=== PATIENT | female | born 1935 | race Caucasian/White ===

== ENCOUNTER 2018-02-13 12:32 | Day surgery (SDC) | payer MEDICARE ==
[~2018-02-13] VITALS: Ht 157.5 cm; Wt 67.7 kg
[~2018-02-13 12:32] MED LIST: Armour Thyroid15 MG; CYCL10 PO; HYDACE5 PO; OXYACE5T PO; PARO20; RXCYCL10 PO; RXHYDACE PO; [UNRECOGNIZED DRUG - REMARK]
[2018-02-13] MEDS ORDERED: CONEST.625 (13:31)
== END 2018-02-13 15:07 | disposition home or self-care (01) ==
LOC: ORSCSDS 12:32
PROVIDERS: Ophthalmology
PROC: 08RJ3JZ Replacement of Right Lens with Synthetic Substitute, Percutaneous Approach (ICD-10-PCS; principal; 2018-02-13 14:00)
DX: H25.11 Age-related nuclear cataract, right eye (principal); E03.9 Hypothyroidism, unspecified; H52.4 Presbyopia; Z79.899 Other long term (current) drug therapy
CPT/HCPCS: J2250; J7040; J7120; V2632

== ENCOUNTER 2018-04-03 12:27 | Day surgery (SDC) | payer MEDICARE ==
[~2018-04-03] VITALS: Ht 157.5 cm; Wt 69.0 kg
[~2018-04-03 12:27] MED LIST changes: +CONEST.625
== END 2018-04-03 14:34 | disposition home or self-care (01) ==
LOC: ORSCSDS 12:27
PROVIDERS: Ophthalmology
PROC: 08RK3JZ Replacement of Left Lens with Synthetic Substitute, Percutaneous Approach (ICD-10-PCS; principal; 2018-04-03 14:00)
DX: H25.12 Age-related nuclear cataract, left eye (principal); I10 Essential (primary) hypertension; E03.9 Hypothyroidism, unspecified; Z79.899 Other long term (current) drug therapy
CPT/HCPCS: J2250; J3010; V2632

== ENCOUNTER 2024-02-24 10:45 | Emergency (ER) | payer MEDICARE ==
[~2024-02-24] VITALS: Ht 160 cm; Wt 68.0 kg
[2024-02-24] MEDS ORDERED: NiCARdipine HCL 50 MG in NS 250 ML IV SCH (11:10)
[2024-02-24 11:35] LABS: BASOPHILS ABSOLUTE AUTO 0.05 K/mm3 (0.00-0.23); BASOPHILS PERCENT AUTO 1 % (0-2); EOSINOPHILS ABSOLUTE AUTO 0.28 K/mm3 (0.00-0.68); EOSINOPHILS PERCENT AUTO 4 % (0-6); Hematocrit 34.2 % (33.0-51.0); Hemoglobin 11.4 g/dL (11.5-16.0); IMMATURE GRAN ABSOLUTE AUTO 0.02 K/mm3 (0.00-0.10); IMMATURE GRAN PERCENT AUTO 0 % (0-1); LYMPHOCYTES ABSOLUTE AUTO 2.65 K/mm3 (0.84-5.20); LYMPHOCYTES PERCENT AUTO 41 % (21-46); MONOCYTES ABSOLUTE AUTO 0.39 K/mm3 (0.16-1.47); MONOCYTES PERCENT AUTO 6 % (4-13); Mean Corpuscular HGB 31.1 pg (26.0-34.0); Mean Corpuscular HGB Conc 33.3 g/dL (31.5-36.5); Mean Corpuscular Volume 93 fL (80-100); Mean Platelet Volume 11.1 fL (9.1-12.4); NEUTROPHILS ABSOLUTE AUTO 3.08 K/mm3 (1.96-9.15); NEUTROPHILS PERCENT AUTO 48 % (41-73); Platelet Count 230 K/mm3 (150-400); RDW Coefficient Variation 13.9 % (11.7-14.2); RDW Standard Deviation 47.4 fL (35.1-46.3); Red Blood Cell Count 3.66 M/mm3 (3.80-5.20); White Blood Cell Count 6.47 K/mm3 (4.00-11.30)
[2024-02-24] MEDS ORDERED: THYR60 (11:46)
[2024-02-24 12:12] LABS: Albumin, Blood 3.2 g/dL (3.4-5.0); Albumin/Globulin Ratio 0.9 (0.8-1.8); Bilirubin, Total 0.5 mg/dL (0.1-1.0); Bun/Creatinine Ratio 28.3 (12.0-20.0); Calcium, Blood 8.8 mg/dL (8.5-10.1); Creatinine, Blood 0.81 mg/dL (0.40-1.00); Globulin, Blood 3.5 g/dL (2.2-4.0); Potassium, Blood 3.9 mmol/L (3.5-5.5); Total Protein, Blood 6.7 g/dL (6.4-8.2)
[2024-02-24 13:33] VITALS: BP 144/75
== END 2024-02-24 13:33 | disposition short-term general hospital (02) ==
LOC: ER 10:45
PROVIDERS: Emergency Medicine
DX: I62.9 Nontraumatic intracranial hemorrhage, unspecified (principal); E03.9 Hypothyroidism, unspecified; Z88.1 Allergy status to other antibiotic agents; Z79.818 Long term (current) use of other agents affecting estrogen receptors and estrogen levels; Z79.899 Other long term (current) drug therapy
CPT/HCPCS: 70450; 70496; 70498; 80053; 85025; 93005; 93010; 96365-59; 99291-25; J7050; Q9967

== ENCOUNTER 2024-03-18 14:56 | Emergency (ER) | payer MEDICARE ==
[~2024-03-18] VITALS: Ht 157.5 cm; Wt 68.0 kg
[~2024-03-18 14:56] MED LIST changes: +THYR60
[2024-03-18 15:54] VITALS: BP 153/90
== END 2024-03-18 15:55 | disposition other institution (70) ==
LOC: ER 14:56
DX: R20.2 Paresthesia of skin (principal); E03.9 Hypothyroidism, unspecified; G47.30 Sleep apnea, unspecified; Z88.1 Allergy status to other antibiotic agents; Z88.8 Allergy status to other drugs, medicaments and biological substances; Z79.899 Other long term (current) drug therapy
CPT/HCPCS: 99283

== ENCOUNTER 2024-06-16 16:04 | Emergency (ER) | payer MEDICARE ==
[~2024-06-16] VITALS: Ht 162.6 cm; Wt 68.0 kg
[2024-06-16 16:33] LABS: BASOPHILS ABSOLUTE AUTO 0.05 K/mm3 (0.00-0.23); BASOPHILS PERCENT AUTO 1 % (0-2); EOSINOPHILS ABSOLUTE AUTO 0.31 K/mm3 (0.00-0.68); EOSINOPHILS PERCENT AUTO 5 % (0-6); Hematocrit 38.2 % (33.0-51.0); Hemoglobin 12.7 g/dL (11.5-16.0); IMMATURE GRAN ABSOLUTE AUTO 0.01 K/mm3 (0.00-0.10); IMMATURE GRAN PERCENT AUTO 0 % (0-1); LYMPHOCYTES ABSOLUTE AUTO 2.96 K/mm3 (0.84-5.20); LYMPHOCYTES PERCENT AUTO 45 % (21-46); MONOCYTES ABSOLUTE AUTO 0.29 K/mm3 (0.16-1.47); MONOCYTES PERCENT AUTO 4 % (4-13); Mean Corpuscular HGB 30.8 pg (26.0-34.0); Mean Corpuscular HGB Conc 33.2 g/dL (31.5-36.5); Mean Corpuscular Volume 93 fL (80-100); Mean Platelet Volume 10.6 fL (9.1-12.4); NEUTROPHILS ABSOLUTE AUTO 2.97 K/mm3 (1.96-9.15); NEUTROPHILS PERCENT AUTO 45 % (41-73); Platelet Count 249 K/mm3 (150-400); RDW Coefficient Variation 13.7 % (11.7-14.2); RDW Standard Deviation 46.8 fL (35.1-46.3); Red Blood Cell Count 4.13 M/mm3 (3.80-5.20); White Blood Cell Count 6.59 K/mm3 (4.00-11.30)
[2024-06-16] MEDS ORDERED: NiCARdipine HCL 50 MG in NS 250 ML IV SCH (16:35)
[2024-06-16] MEDS ORDERED: Labetalol HCL 5 MG/ML 4ML Injection (Single Dose) IV ONE ×2 (16:35→18:15)
[2024-06-16] MEDS ORDERED: propofoL 100 ML IV SCH (16:55)
[2024-06-16] MEDS ORDERED: FentaNYL Citrate 50 MCG/ML 2 ML Injection IV ONE (16:55)
[2024-06-16 17:05] LABS: International Normalized Ratio 0.93
[2024-06-16 17:11] LABS: Albumin, Blood 3.8 g/dL (3.4-5.0); Albumin/Globulin Ratio 1.1 (0.8-1.8); Bilirubin, Total 0.5 mg/dL (0.1-1.0); Bun/Creatinine Ratio 20.2 (12.0-20.0); Calcium, Blood 9.2 mg/dL (8.5-10.1); Creatinine, Blood 0.84 mg/dL (0.40-1.00); Globulin, Blood 3.6 g/dL (2.2-4.0); Potassium, Blood 3.6 mmol/L (3.5-5.5); Total Protein, Blood 7.4 g/dL (6.4-8.2)
[2024-06-16 18:40] VITALS: BP 148/71
[2024-06-16] MEDS ORDERED: Rocuronium Bromide 10 MG/ML 5ML Injection IV ONE (20:22)
[2024-06-16] MEDS ORDERED: Propofol 10mg/ml 20 ml Vial (Procedural) IV ONE (20:22)
== END 2024-06-16 19:00 | disposition short-term general hospital (02) ==
LOC: ER 16:04
PROVIDERS: Emergency Medicine
DX: I62.9 Nontraumatic intracranial hemorrhage, unspecified (principal); I10 Essential (primary) hypertension; E03.9 Hypothyroidism, unspecified; Z79.899 Other long term (current) drug therapy; Z86.73 Personal history of transient ischemic attack (TIA), and cerebral infarction without residual deficits
CPT/HCPCS: 31500; 51702; 70450; 71045; 80053; 85025; 85610; 85730; 93005; 93010; 94002; 96365; 96375; 99285-25; J2704; J3010; J7050